=== PATIENT | male | born 1960 | race Caucasian/White ===

== ENCOUNTER 2021-05-09 15:30 | Outpatient (RCR) | payer MEDICARE ==
[2021-05-19] MEDS ORDERED: FISH OIL1 IU PO (16:24)
[2021-05-19] MEDS ORDERED: LIPITOR 80MG80 MG PO (16:24)
[2021-05-19] MEDS ORDERED: CLOPIDOGREL PO (16:24)
[2021-05-19] MEDS ORDERED: TOPCARE ASPIRIN81 M1 PO (16:24)
[2021-05-19] MEDS ORDERED: FLOMAX0.4 MG PO (16:25)
[2021-05-19] MEDS ORDERED: TOPROL XL 25MG25 MG PO (16:25)
[2021-05-19] MEDS ORDERED: PROTONIX TR40 M1 PO (16:25)
[2021-05-19] MEDS ORDERED: LEVOTHYROXIN0.137 MG PO (16:25)
[2021-05-19] MEDS ORDERED: ZESTRIL10 M1 PO (16:25)
[2021-05-19] MEDS ORDERED: VITAMIN D3250 MCG (16:26)
== END 2021-06-03 | disposition home or self-care (01) ==
LOC: CARDREHAB 15:30
DX: Z48.812 Encounter for surgical aftercare following surgery on the circulatory system (principal); Z95.1 Presence of aortocoronary bypass graft

== ENCOUNTER 2021-05-19 16:02 | Observation (INO) | payer MEDICARE ==
[~2021-05-19] VITALS: Wt 77.6 kg
[2021-05-19] MEDS ORDERED: LIPITOR 80MG80 MG PO (16:24)
[2021-05-19] MEDS ORDERED: TOPCARE ASPIRIN81 M1 PO (16:24)
[2021-05-19] MEDS ORDERED: FISH OIL1 IU PO (16:24)
[2021-05-19] MEDS ORDERED: CLOPIDOGREL PO (16:24)
[2021-05-19] MEDS ORDERED: PROTONIX TR40 M1 PO (16:25)
[2021-05-19] MEDS ORDERED: LEVOTHYROXIN0.137 MG PO (16:25)
[2021-05-19] MEDS ORDERED: TOPROL XL 25MG25 MG PO (16:25)
[2021-05-19] MEDS ORDERED: FLOMAX0.4 MG PO (16:25)
[2021-05-19] MEDS ORDERED: ZESTRIL10 M1 PO (16:25)
[2021-05-19] MEDS ORDERED: VITAMIN D3250 MCG (16:26)
[2021-05-19 16:27] LABS: BASO # 0.03 K/mm3 (0.02-0.10); EOS # 0.19 K/mm3 (0.04-0.40); EOS % 3.4 % (0.0-4.0); HEMATOCRIT 41.5 % (42.0-52.0); HEMOGLOBIN 13.3 g/dL (13.5-18.0); LYMPH# 2.33 K/mm3 (1.50-4.00); MEAN CELL VOLUME 84 fl (78-100); MEAN CORPUSCULAR HEMOGLOBIN 27 pg (27-31); MEAN CORPUSCULAR HGB CONC 32 g/dL (33-37); MEAN PLATELET VOLUME 10.4 fl (7.4-10.4); PLATELET COUNT 159 K/mm3 (130-400); RED BLOOD COUNT 4.97 M/mm3 (4.20-5.60); RED CELL DISTRIBUTION WIDTH 14.6 % (11.5-14.5); WHITE BLOOD COUNT 5.7 K/mm3 (4.8-10.8)
[2021-05-19 16:38] LABS: ALBUMIN 3.7 g/dL (3.4-4.8)
[2021-05-19 16:39] LABS: POTASSIUM 4.2 mmol/L (3.5-5.1); SODIUM 141 mmol/L (136-145)
[2021-05-19 16:41] LABS: GLUCOSE 106 mg/dL (75-110); TOTAL PROTEIN 6.8 g/dL (6.2-8.1)
[2021-05-19 16:42] LABS: CARBON DIOXIDE 27 mmol/L (23-31)
[2021-05-19 16:43] LABS: TOTAL BILIRUBIN 0.5 mg/dL (0.2-1.2)
[2021-05-19 16:46] LABS: AST-SGOT 17 U/L (5-34)
[2021-05-19 16:47] LABS: ALT/SGPT 15 U/L (0-55)
[2021-05-19 16:53] LABS: PROTHROMBIN TIME 9.5 SECONDS (9.0-12.0)
[2021-05-19 16:58] LABS: TROPONIN-I < 0.03 ng/mL (<0.030)
[2021-05-19 18:39] LABS: URINE APPEARANCE CLEAR; URINE BILIRUBIN NEGATIVE (NEGATIVE); URINE BLOOD 250 ery/uL (NEGATIVE); URINE COLOR YELLOW; URINE GLUCOSE NEGATIVE (NEGATIVE); URINE KETONE NEGATIVE (NEGATIVE); URINE LEUKOCYTE ESTERASE TRACE (NEGATIVE); URINE NITRATE NEGATIVE (NEGATIVE); URINE PROTEIN(semi-quant) 1+ mg/dL (NEGATIVE); URINE UROBILINOGEN NORMAL (NORMAL)
[2021-05-19 18:40] LABS: URINE MUCUS PRESENT (NOT PRESENT)
[2021-05-19 22:04] VITALS: BP 167/94
[2021-05-20 02:14] VITALS: BP 135/75
[2021-05-20 05:57] VITALS: BP 164/99
== END 2021-05-20 09:00 | disposition home or self-care (01) ==
LOC: ED 16:02 → MED/SURG 18:01
PROVIDERS: ADMIT Family Medicine
DX: G45.9 Transient cerebral ischemic attack, unspecified (principal); E55.9 Vitamin D deficiency, unspecified; E03.9 Hypothyroidism, unspecified; I10 Essential (primary) hypertension; I25.10 Atherosclerotic heart disease of native coronary artery without angina pectoris; K21.9 Gastro-esophageal reflux disease without esophagitis; E78.5 Hyperlipidemia, unspecified; Z79.82 Long term (current) use of aspirin; Z79.899 Other long term (current) drug therapy; Z79.02 Long term (current) use of antithrombotics/antiplatelets; Z79.890 Hormone replacement therapy
CPT/HCPCS: G0378; J7030

== ENCOUNTER 2021-06-08 15:22 | Outpatient (RCR) | payer MEDICARE ==
[~2021-06-08 15:22] MED LIST: CLOPIDOGREL PO; FISH OIL1 IU PO; FLOMAX0.4 MG PO; LEVOTHYROXIN0.137 MG PO; LIPITOR 80MG80 MG PO; PROTONIX TR40 M1 PO; TOPCARE ASPIRIN81 M1 PO; TOPROL XL 25MG25 MG PO; VITAMIN D3250 MCG; ZESTRIL10 M1 PO
== END 2021-07-04 | disposition home or self-care (01) ==
LOC: CARDREHAB
DX: Z48.812 Encounter for surgical aftercare following surgery on the circulatory system (principal); Z95.1 Presence of aortocoronary bypass graft

== ENCOUNTER 2021-07-11 15:30 | Outpatient (RCR) | payer MEDICARE | END 2021-08-01 | disposition home or self-care (01) | LOC: CARDREHAB | DX: Z48.812 Encounter for surgical aftercare following surgery on the circulatory system (principal); Z95.1 Presence of aortocoronary bypass graft ==

== ENCOUNTER 2021-08-03 15:30 | Outpatient (RCR) | payer MEDICARE | END 2021-09-01 | disposition home or self-care (01) | LOC: CARDREHAB | DX: Z48.812 Encounter for surgical aftercare following surgery on the circulatory system (principal); Z95.5 Presence of coronary angioplasty implant and graft ==

== ENCOUNTER 2021-12-21 08:02 | Emergency (ER) | payer OTHER ==
[~2021-12-21] VITALS: Ht 177.8 cm; Wt 72.7 kg
[2021-12-21 08:55] LABS: BASO # 0.04 K/mm3 (0.02-0.10); EOS # 0.18 K/mm3 (0.04-0.40); EOS % 2.3 % (0.0-4.0); HEMATOCRIT 42.4 % (42.0-52.0); HEMOGLOBIN 13.9 g/dL (13.5-18.0); LYMPH# 2.17 K/mm3 (1.50-4.00); MEAN CELL VOLUME 90 fl (78-100); MEAN CORPUSCULAR HEMOGLOBIN 30 pg (27-31); MEAN CORPUSCULAR HGB CONC 33 g/dL (33-37); NEU # 4.75 K/mm3 (1.40-6.50); PLATELET COUNT 138 K/mm3 (130-400); RED BLOOD COUNT 4.69 M/mm3 (4.20-5.60); RED CELL DISTRIBUTION WIDTH 13.3 % (11.5-14.5); WHITE BLOOD COUNT 7.8 K/mm3 (4.8-10.8)
[2021-12-21 08:59] LABS: ALBUMIN 3.8 g/dL (3.4-4.8); POTASSIUM 3.7 mmol/L (3.5-5.1)
[2021-12-21 09:01] LABS: TOTAL PROTEIN 6.6 g/dL (6.2-8.1)
[2021-12-21 09:03] LABS: TOTAL BILIRUBIN 0.5 mg/dL (0.2-1.2)
[2021-12-21 09:15] LABS: PROTHROMBIN TIME 10.1 SECONDS (9.0-12.0)
[2021-12-21 12:50] VITALS: BP 138/79
== END 2021-12-21 12:00 | disposition home or self-care (01) ==
LOC: ED 08:02
PROVIDERS: Physician Assistant
DX: R04.0 Epistaxis (principal); I10 Essential (primary) hypertension; Z87.891 Personal history of nicotine dependence